=== PATIENT | female | born 1960 | race Caucasian/White ===

== ENCOUNTER 2017-04-29 15:03 | Emergency (ER) | payer OTHER ==
[~2017-04-29] VITALS: Ht 167.6 cm; Wt 50.0 kg
[~2017-04-29 15:03] MED LIST: CLINDAMYCIN HC300 MG PO; COUMADIN1 MG PO; COUMADIN5 MG PO; Coumadin Protocol PO; Coumadin,Jantoven PO; FOLIC ACID1 MG PO; Habitrol,Nicoderm CQ TD; INR ON; LOVENOX60 MG/0.6 SC; Levaquin PO; Lovenox SC; NAPROXEN250 MG PO; NO HOME MEDS; Thiamine,Vitamin B1 PO; WARFARIN SODIUM6 MG PO
[2017-04-29 15:53] LABS: HEMATOCRIT 40.4 % (36.0-46.0); MCH 36.9 PG (29.0-34.0); MCHC 34.9 G/DL (30.0-36.0); MCV 105.8 FL (83-99); MEAN PLAT.VOLUME 10.9 uM^3 (9.5-12.4); NRBC (%) 0.3 /100 WBC (0-0); PLATELET COUNT 196 K/uL (156-360); RBC DIS.WIDTH-CV 14.1 % (11.8-14.6); RED BLOOD COUNT 3.82 M/uL (3.80-5.20); WHITE BLOOD COUNT 7.4 K/uL (4.1-10.2)
[2017-04-29 16:02] LABS: PTT 59.4 SEC (25-37)
[2017-04-29 16:03] LABS: CHLORIDE 105 mEq/L (99-109); POTASSIUM 4.5 mEq/L (3.7-5.4); SODIUM 141 mEq/L (136-147)
[2017-04-29 16:05] LABS: GLUCOSE 77 mg/dL (70-99)
[2017-04-29 16:06] LABS: ANION GAP 14 MEQ/L (2-14); PROTHROMBIN TIME 91.2 SEC (10.2-12.9)
[2017-04-29 16:08] LABS: INTER. NORMALIZED RATIO 7.6; TOTAL BILIRUBIN 0.2 mg/dL (0.0-1.0)
[2017-04-29 16:09] LABS: ALKALINE PHOSPHATASE 88 IU/L (3-129); GFR ESTIMATE (CALCULATED) > 59 mL/min/
[2017-04-29 16:10] LABS: UREA NITROGEN (BUN) 13 mg/dL (9-23)
[2017-04-29 16:14] LABS: TROP-I INTERPRETATION NEGATIVE; TROPONIN-I < 0.01 ng/mL (0.0-0.30)
[2017-04-29 19:25] VITALS: BP 122/78
== END 2017-04-29 19:34 | disposition home or self-care (01) ==
LOC: EME 15:03
DX: R07.89 Other chest pain (principal); J44.9 Chronic obstructive pulmonary disease, unspecified; Z86.711 Personal history of pulmonary embolism; Z86.718 Personal history of other venous thrombosis and embolism; Z79.01 Long term (current) use of anticoagulants; Z85.42 Personal history of malignant neoplasm of other parts of uterus; F17.200 Nicotine dependence, unspecified, uncomplicated; Z88.0 Allergy status to penicillin
CPT/HCPCS: 71020; 71275; 80053; 84484; 85027; 85610; 85730; 93005; 99281; 99285

== ENCOUNTER 2018-05-19 15:53 | Emergency (ER) | payer OTHER ==
[~2018-05-19] VITALS: Ht 162.6 cm; Wt 55.8 kg
[2018-05-19 18:19] LABS: BASOPHIL (%) 0.7 % (0-1); BASOPHIL COUNT 0.1 K/uL (0-0.1); EOSINOPHIL (%) 0 % (0-5); HEMATOCRIT 33.3 % (36.0-46.0); HEMOGLOBIN 11.9 G/DL (11.9-15.5); IMMATURE GRANULOCYTE (%) 0.3 % (0.0-0.7); LYMPHOCYTE (%) 13.9 % (15-42); LYMPHOCYTE COUNT 1.5 K/uL (1.0-2.8); MCH 36.7 PG (29.0-34.0); MCHC 35.7 G/DL (30.0-36.0); MCV 102.8 FL (83-99); MONOCYTE (%) 9.7 % (3-12); NEUTROPHIL (%) 75.4 % (45-76); PLATELET COUNT 187 K/uL (156-360); RBC DIS.WIDTH-CV 14.1 % (11.8-14.6); RBC DIS.WIDTH-SD 53.8 % (39-53); RED BLOOD COUNT 3.24 M/uL (3.80-5.20); WHITE BLOOD COUNT 10.6 K/uL (4.1-10.2)
[2018-05-19 18:27] LABS: CHLORIDE 108 mEq/L (99-109); SODIUM 138 mEq/L (136-147)
[2018-05-19 18:28] LABS: ALBUMIN 3.3 g/dL (3.2-4.8); MAGNESIUM 1.9 mg/dL (1.3-2.7)
[2018-05-19 18:30] LABS: GLUCOSE 83 mg/dL (70-99); TOTAL PROTEIN 6.2 g/dL (6.4-8.3)
[2018-05-19 18:32] LABS: TOTAL BILIRUBIN 0.5 mg/dL (0.0-1.0)
[2018-05-19 18:33] LABS: SERUM ETHYL ALCOHOL < 10 mg/dL
[2018-05-19 18:34] LABS: ALKALINE PHOSPHATASE 80 IU/L (3-129); CREATININE 0.7 mg/dL (0.6-1.3); GFR ESTIMATE (CALCULATED) > 59 mL/min/
[2018-05-19 18:35] LABS: AST (GOT) 54 IU/L (2-34); UREA NITROGEN (BUN) 9 mg/dL (9-23)
[2018-05-19 18:37] LABS: ALT (GPT) 24 IU/L (3-49)
[2018-05-19 18:40] LABS: TROP-I INTERPRETATION NEGATIVE; TROPONIN-I < 0.01 ng/mL (0.0-0.30)
[2018-05-19 19:10] LABS: LIPASE 16 U/L (1.0-51.0)
[2018-05-19 19:21] LABS: AMPHETAMINE NEGATIVE (500 ng/mL); BARBITURATES NEGATIVE (200 ng/mL); BENZODIAZEPINES NEGATIVE (150 ng/mL); BUPRENORPHINE NEGATIVE (10 ng/mL); COCAINE NEGATIVE (150 ng/mL); METHADONE NEGATIVE (200 ng/mL); METHAMPHETAMINE NEGATIVE (500 ng/mL); OPIATES (MORPHINE) NEGATIVE (100 ng/mL); OXYCODONE NEGATIVE (100 ng/mL); PHENCYCLIDINE NEGATIVE (25 ng/mL); PROPOXYPHENE NEGATIVE (300 ng/mL); THC CANNABINOIDS NEGATIVE (50 ng/mL); TRICYCLIC ANTIDEPRESSANTS NEGATIVE (300 ng/mL)
[2018-05-19 19:22] LABS: APPEARANCE CLEAR ((CLEAR)); BILIRUBIN NEGATIVE; BLOOD SMALL; COLOR YELLOW ((YELLOW)); GLUCOSE (STRIP) NEGATIVE; KETONES 20; LEUKOCYTES SMALL; NITRITE POSITIVE; PROTEIN (STRIP) NEGATIVE; SPECIFIC GRAVITY 1.016 (1.000-1.030); UROBILINOGEN 0.2 MG/DL (0.2-1.0)
[2018-05-19 19:41] LABS: BACTERIA RARE /HPF; EPITHELIAL CELLS RARE /HPF; MUCUS NONE SEEN /LPF; RED BLOOD CELLS 0-5 /HPF (0-5); WHITE BLOOD CELLS 20-30 /HPF (0-5)
[2018-05-19] MEDS ORDERED: CIPRO250 MG PO (20:25)
[2018-05-19 20:51] LABS: PTT 30.7 SEC (25-37)
[2018-05-19 21:11] VITALS: BP 124/77
== END 2018-05-19 21:14 | disposition home or self-care (01) ==
LOC: EME 15:53
PROVIDERS: Emergency Medicine
DX: N39.0 Urinary tract infection, site not specified (principal); F10.20 Alcohol dependence, uncomplicated; R55 Syncope and collapse; Z79.01 Long term (current) use of anticoagulants; J43.9 Emphysema, unspecified; F32.9 Major depressive disorder, single episode, unspecified; F17.200 Nicotine dependence, unspecified, uncomplicated; Z86.718 Personal history of other venous thrombosis and embolism; Z85.42 Personal history of malignant neoplasm of other parts of uterus; Z88.0 Allergy status to penicillin
CPT/HCPCS: 80053; 81003; 82140; 83690; 83735; 84484; 85025; 85610; 85730; 93005; 99281; 99285; G0480; J7030